=== PATIENT | male | born 2000 | race Caucasian/White ===

== ENCOUNTER 2023-12-10 22:01 | Observation (INO) | payer SELFPAY ==
--- NOTE | ~2023-12-10 | CT_ITS ---
EXAMINATION: CT cervical spine wo con DATE: 12/10/2023 22:38 INDICATION: Head and neck injury. TECHNIQUE: Computed tomography (CT) of the cervical spine was performed without intravenous contrast. Automated exposure control and iterative reconstruction technique were employed. The dose-length pro duct was 605.33 mGy-cm. COMPARISON: None FINDINGS: Bone alignment is normal. Vertebral body heights are normal. There is mildly decreased disc height at C7-T1. At C7-T1, there is mild bilateral uncovertebral joint osteoarthritis and mild bilat eral facet joint osteoarthritis. No neural foraminal stenosis or central canal stenosis. IMPRESSION: 1. No fracture. 2. Mild cervical spondylosis. Reviewed, dictated and finalized at location E.
--- NOTE | ~2023-12-10 | CT_ITS ---
EXAMINATION: CT brain wo con DATE: 12/10/2023 22:38 INDICATION: Head injury. TECHNIQUE: Computed tomography (CT) of the head was performed without intravenous contrast. The mA wa s adjusted according to patient size. Iterative reconstruction technique was employed. The dose-lengt h product was 605.33 mGy-cm. COMPARISON: None FINDINGS: There is no intracranial hemorrhage, acute infarction, or abnormal intracranial mass lesion . The ventricles are normal in size. The orbits are normal. There is mild mucosal thickening in the e thmoid sinuses. The mastoid air cells are normal. IMPRESSION: 1. Normal brain. Reviewed, dictated and finalized at location E. IMPRESSION: 1. Normal brain.
[2023-12-10 22:02] VITALS: BP 104/86; PULSE 64; RESP 20; TEMP 36.3; O2SAT 100
--- NOTE | 2023-12-10 22:13 | ED.HEATRA ---
HPI - Head Injury General Chief complaint: Head Injury Stated complaint: head injury Time Seen by Provider: 12/10/23 22:07 Source: patient and family Mode of arrival: ambulatory Limitations: no limitations History of Present Illness HPI Narrative: is a 22-year-old male presents after playing rugby and had head and neck injury currently having headache that he rates about a 6/10 with nausea and vomiting with no loss of consciousness no other injuries noted. Has nausea with vomiting no chest pain no abdominal pain no shortness of breath no fever chills. Complaint: head injury and head pain Onset (ago): hour(s) Mechanism of Injury: sports related injury Place: outdoors Loss of Consciousness: no Location of injury: parietal and temporal Severity: moderate Severity scale (1-10): 6 Radiation: neck Other Injuries: none Related Data Home Medications Medication Instructions Recorded Confirmed No Home Medications 12/10/23 12/10/23 Allergies Allergy/AdvReac Type Severity Reaction Status Date / Time mushroom Allergy Unknown Verified 12/10/23 22:09 shellfish derived Allergy Unknown Verified 12/10/23 22:09 strawberry Allergy Unknown Verified 12/10/23 22:09 Review of Systems Review of Systems: All systems reviewed & are unremarkable except as noted in HPI and below PMFSH Past Medical History Medical History Patient denies medical problems Exam Const: General: no acute distress Nutritional Appearance: well nourished Orientation/consciousness: patient oriented x3 Limitations: no limitations HENMT: Head: normal to inspection Ears: external ears normal Face/Nose/Sinus: Normal external nose present Face and sinus: normal facial exam Eyes: Conjunctivae: conjunctivae normal Pupils: Equal, round and reactive pupils present Chest: Chest palpation & inspection: normal inspection of the chest Resp: Effort & Inspection: normal respiratory effort Auscultation: clear to auscultation bilaterally Cardio: Rate: regular rate Rhythm: regular rhythm GI: GI Palp: Yes Soft to palpation Auscultation: normal bowel sounds Skin: General skin exam: normal color Neuro: General: patient oriented x3, moves all extremities, no meningeal signs and no focal motor deficits Extrem: General: normal to inspection Course Course Emergency Course: Patient received IV fluids 30mg IV Toradol and 4mg IV Zofran, Zofran after reassessment did help with the nausea and vomiting, Toradol after reassessment pain level still about a 5 per 6/10 will administer another dose of morphine 2mg IV. CT scan the head and cervical spine without any acute abnormalities. Will admit to the hospital for minor head injury /possible concussion. Vital Signs Vital signs: Vital Signs Temperature 36.3 C L 12/10/23 22:02 Pulse Rate 64 12/10/23 22:02 Respiratory Rate 20 12/10/23 22:02 Blood Pressure 104/86 12/10/23 22:02 Pulse Oximetry 100 12/10/23 22:02 Oxygen Delivery Room Air 12/10/23 22:02 Temperature 36.3 C L 12/10/23 22:02 Pulse Rate 64 12/10/23 22:02 Respiratory Rate 20 12/10/23 22:02 Blood Pressure 104/86 12/10/23 22:02 Pulse Oximetry 100 12/10/23 22:02 Oxygen Delivery Room Air 12/10/23 22:02 Critical Care Time Critical Care Time Critical Care Time: No Discharge Plan Discharge Clinical Impression: Minor head injury Qualifiers: Encounter type: initial encounter Qualified Code(s): S09.90XA - Unspecified injury of head, initial encounter Concussion Qualifiers: Encounter type: initial encounter Loss of consciousness presence/duration: without LOC Qualified Code(s): S06.0X0A - Concussion without loss of consciousness, initial encounter Patient Disposition: Acute Care Hospital [facility] Condition: Guarded Prognosis Prescriptions: No Action No Home Medications Follow-up/Referrals: UNKNOWN,DOCTOR [Primary Care Prov
[2023-12-10] MEDS: ONDANSETRON INJ 4 MG/2 ML VIAL IV PUSH (22:35)
[2023-12-10] MEDS: KETOROLAC 30 MG/ML VIAL (*BKC) IV PUSH (22:35)
[2023-12-10] MEDS: SODIUM CHLORIDE 0.9% IV 1,000 ML 999 ML IV CONT (22:38)
--- NOTE | 2023-12-10 22:48 | PC.NURSE ---
assumed care. report received from Alex HAMILTON
--- NOTE | 2023-12-10 22:50 | PC.NURSE ---
report to JOY lazo
--- NOTE | 2023-12-10 22:55 | PC.NURSE ---
Dr Waldron at the bedside
[2023-12-10] MEDS: MORPHINE SULFATE (*CRX) 2 MG/ML INJ IV PUSH (23:06)
[2023-12-10] MEDS: SODIUM CHLORIDE 0.9% IV 1,000 ML 100 ML IV CONT (23:12)
[2023-12-10 23:43] VITALS: BP 123/75; PULSE 52; RESP 18; TEMP 36.2; O2SAT 100
--- NOTE | 2023-12-10 23:48 | PC.NURSE ---
mother has arrived. mother is refusing to leave her son for the night. spoke with the floor. no visitors over night. visiting hours at 10am to 8pm. again, mother refuses to leave son here alone. Shelby HAMILTON, bottle house quality control technician was notified. Ok to let mother stay tonight and management will speak to her in the am. mother states i hope you are a mother. then you should understand why I am not leaving
[2023-12-11] VITALS: BP 119/67; PULSE 62; RESP 20; TEMP 36.5; O2SAT 100
[2023-12-11 00:01] VITALS: BMI 25.7
[2023-12-11 00:10] VITALS: PULSE 62; RESP 20; O2SAT 100
--- NOTE | 2023-12-11 00:40 | ADMGEN ---
This patient, Charly Main, was admitted to 2nd Floor Room 203-2. Patient/family oriented to hospital policies and general routines including ID bracelet, bed and alarms, visiting hours, pain management, procedures, bathroom and other care routines, personal items, smoking policy, room service/diet, and visiting hours. Mother accompanied patient and answered many admission questions for him as he had a headache, made worse by activity and noise. Patient has been eating ice chips periodically. Stated his head and stomach felt better after raising the head of his bed 20 degrees. Reviewed diet with patient and given ice water for now. Will advance diet as tolerated. Patient agrees to plan. Information on how to activate the Rapid Response Team has been discussed. Patient/Family are encouraged to report perceived risks to care and to ask questions if they do not understand what they are told or what they should do.
--- NOTE | 2023-12-11 02:20 | PC.NURSE ---
Has tolerated ice water without further nausea. C/O of hunger. Given sandwich, clear soda, jello and crackers. Instructed to eat jello and clear soda before eating sandwich. If nausea occurs to hold on eating sandwich. Patient states he understands. Remains alert and oriented x 3 with no neurological deficits. IV infusion continues at 100ml/hr per IV pump. Mother remains at bedside.
[2023-12-11 04:00] VITALS: BP 102/54; PULSE 84; RESP 16; TEMP 36.2; O2SAT 97
--- NOTE | 2023-12-11 06:26 | PC.NURSE ---
States no further nausea; mother said, he's able to sleep now. Patient states headache better.
--- NOTE | 2023-12-11 07:25 | PC.NURSE ---
Patient's IV occluded. Awaiting FORGING DIES FINAL FINISHER order to replace or remove.
[2023-12-11 08:00] VITALS: BP 90/49; PULSE 67; RESP 14; TEMP 36.7; O2SAT 96
--- NOTE | 2023-12-11 08:05 | PM.SD2 ---
Same Day Admit/Disch: HPI History of Present Illness Chief complaint: head injury concussion Narrative: Charly Main is a 22 year old male with no significant past medical history who presented to the hospital with complaint of head injury. Patient states that he was playing rugby and had sustained a head and neck injury after colliding into another flare. He reports having a headache with associated nausea and vomiting. There was no loss of consciousness or any other injuries noted. Workup in the hospital included a head CT which was negative for any acute intracranial findings. He also had a CT of the cervical spine which was negative for any fracture however showed mild cervical spondylosis. He was admitted for pain and nausea control. He was given Toradol q.6 hour as well as Zofran. [facility] Past Medical History Medical History Patient denies medical problems Family History Family History Mother Congestive heart failure Diabetes mellitus Social History Social History Smoking status: Never smoker Second hand tobacco smoke exposure: No Additional smoking assessment comments: States smokes Marijuana once week on average Alcohol intake: current Drinks per week: 2 Substance use: current Substance use type: marijuana Do You Feel Safe in your Home?: Yes Lack of Transportation: No Lack of Food: Never True Current Housing: I Have Housing Concerned About Future Housing: No Difficulty Paying Gas/Electric Bills: No Difficulty Paying for Meds: No Currently Unemployed: YES Education: High School Diploma/GED Difficulty w/ Childcare or Family Care: No Spiritual care concerns: No Same Day Admit/Disch: Med Pre-admit Medications Home Medications Medication Instructions Recorded Confirmed Type ibuprofen 800 mg tablet 800 mg PO Q6H #10 tabs 12/11/23 Rx Review of Systems Review of Systems All systems reviewed & are unremarkable except as noted in HPI and below Constitutional Constitutional: Reports as per HPI and Reports no additional constitutional complaints Eyes Eyes: Reports as per HPI and Reports no additional eye complaints ENT Reports system reviewed and no additional complaints, except as documented and Reports as per HPI Cardiovascular Cardiovascular: Reports as per HPI and Reports no additional cardiovascular complaints Respiratory Respiratory: Reports as per HPI and Reports no additional respiratory complaints Gastrointestinal Gastrointestinal: Reports as per HPI and Reports no additional gastrointestinal complaints Genitourinary Genitourinary: Reports no additional male genitourinary complaints and Reports as per HPI Musculoskeletal Musculoskeletal: Reports no additional musculoskeletal complaints and Reports as per HPI Integumentary/Breasts Skin/Breast: Reports system reviewed and no additional complaints, except as docu and Reports as per HPI Neurologic Reports system reviewed and no additional complaints, except as documented and Reports as per HPI Psychiatric Psychiatric: Reports no additional psychiatric complaints and Reports as per HPI Endocrine Endocrine: Reports no additional endocrine complaints and Reports as per HPI Hematologic/Lymphatic Hematologic/Lymphatic: Reports no additional hematologic/lymphatic complaints and Reports as per HPI Allergic/Immunologic Allergic/Immunologic: Reports no additional allergic/immunologic complaints and Reports as per HPI Exam Narrative: General: In no acute distress, well nourished Head: atraumatic, no encephalopathy Eyes: EOMI, PERRLA, sclera clear ENT: moist mucous membranes, nasal passages clear Neck: supple, no JVD, no adenopathy, trachea midline Cardiac: Normal S1 and S2. RRR,No murmur, gallops or friction rubs, peripheral pulses intact. Respiratory: Lungs lissette
[2023-12-11] MEDS: ACETAMINOPHEN 500 MG TABLET 1000 MG PO (08:11)
--- NOTE | 2023-12-11 08:40 | PC.NURSE ---
IV site discontinued due to occlusion and anticipation of discharge per GEOPHYSICAL DRAFTER.
--- NOTE | 2023-12-11 10:55 | PC.NURSE ---
Discharge instructions given to patient and patient's mother. Both voiced understanding. Patient left unit in w/c accompanied by nurse and patient's mother. Personal items sent home with patient. Patient left hospital grounds in privately owned vehicle.
--- NOTE | 2023-12-14 09:56 | PC.NURSE ---
DC call back attempted, voicemail not set up
--- NOTE | 2023-12-16 10:54 | PC.NURSE ---
Discharge call back attempted, no answer
== END 2023-12-11 10:55 | disposition home or self-care (01) ==
LOC: CHSED 22:58 → CHS2ND 12-11 06:51
PROVIDERS: Admitting Provider Internal Medicine; Emergency Provider Emergency Medicine; Visit Provider Internal Medicine
DX: S06.0X0A Concussion without loss of consciousness, initial encounter (principal); W51.XXXA Accidental striking against or bumped into by another person, initial encounter; Y93.63 Activity, rugby; F12.90 Cannabis use, unspecified, uncomplicated
CPT/HCPCS: 70450; 72125; 96361; 96374; 96375; 99285; G0378; J1885; J2270; J2405; J7030